=== PATIENT | female | born 1955 | race Caucasian/White ===

== ENCOUNTER 2018-09-24 17:35 | Emergency (ER) | payer OTHER ==
[~2018-09-24] VITALS: Ht 162.6 cm; Wt 98.9 kg
[~2018-09-24 17:35] MED LIST: AZITHROMYCIN 2250 MG PO; MEDROLDOSEPACK PO; PROAIR HFA8.5 GM IH; TUSSIONEX PENN473 ML PO
[2018-09-24 18:15] VITALS: BP 151/68
== END 2018-09-24 18:18 | disposition home or self-care (01) ==
LOC: ER 17:35
DX: S00.35XA Superficial foreign body of nose, initial encounter (principal); E11.9 Type 2 diabetes mellitus without complications; X58.XXXA Exposure to other specified factors, initial encounter; Y93.89 Activity, other specified; Y92.89 Other specified places as the place of occurrence of the external cause; Y99.8 Other external cause status

== ENCOUNTER 2018-11-02 14:58 | Inpatient (IN) | payer OTHER ==
[~2018-11-02] VITALS: Ht 157.5 cm; Wt 100.2 kg
--- NOTE | ~2018-11-02 | HC ---
[facility] [place] [address] CONSULTATION Name: KRYSTAL BENITEZ Room #: 363-P [facility] IN M.R.#: [id number] Admission: 11/02/18 ������������������ Attend Phys: Jeff Michael MD Discharge: ������������������ Date of : 55 Report #: [id number] THIS REPORT FOR: //name// CC: Jeff Junior DATE OF SERVICE: 11/03/2018 REASON FOR CONSULTATION: Elevated creatinine and low urine output. REASON FOR PRESENTATION: "I am not able to pee." HISTORY OF PRESENT ILLNESS: This is a 62-year-old who is known to be diabetic and hypertensive. She is maintained on an angiotensin converting enzyme inhibitor and metformin. She reported to the Emergency Room with low urine output, nausea, vomiting for the last couple of days. She did mention that her blood pressure has been on the low side; however, she is not able to elaborate more. She was found to be in an acute kidney injury with an elevated creatinine. She was also found to be hypotensive. Last creatinine we have on the patient was back in 2013 and this was within normal. She is not aware of any previous kidney problems. She denies nonsteroidal anti-inflammatory medication usage. She is not aware of any personal or family history of cystic kidney disease, nephrolithiasis, connective tissue disorders. No known glomerulonephritis in the family. She is not aware of any history of proteinuria or hematuria. When the patient presented yesterday, her blood pressure was on the extreme low side. She was admitted for further evaluation. I am being consulted to manage her acute kidney injury. MEDICATIONS: 1. Oxycodone. 2. Alendronate. 3. Lasix. 4. Glipizide. 5. Sitagliptin. 6. Carvedilol. 7. Lisinopril. 8. Metformin. PAST MEDICAL HISTORY: 1. Diabetes mellitus. 2. Chronic back pain. 3. Hyperlipidemia. 4. Hypertension. 5. Right endarterectomy. 6. Carpal tunnel surgery. 7. Hysterectomy. [address] [address] CONSULTATION Name: KRYSTAL BENITEZ Room #: 363-[facility] IN ..#: [id number] Admission: 11/02/18 ������������������ Attend Phys: Jeff Michael MD Discharge: ������������������ Date of : 55 Report #: [id number] SOCIAL HISTORY: Continues to smoke 2 packs per day. No drug or alcohol abuse. ALLERGIES: None. FAMILY HISTORY: Diabetes mellitus. REVIEW OF SYSTEMS: GENERAL: Significant for weakness. CARDIOVASCULAR: No chest pain or palpitation. PULMONARY: No cough or hemoptysis. GASTROINTESTINAL: Significant for nausea and vomiting. GENITOURINARY: Significant for anuria. MUSCULOSKELETAL: Back pain. PHYSICAL EXAMINATION: GENERAL: The patient is somewhat lethargic this morning. VITAL SIGNS: Blood pressure is 91/53. HEAD AND NECK: No jugular venous distention. CHEST: Decreased air entry bilaterally with no crackles. CARDIOVASCULAR: No rub. ABDOMEN: Soft, nontender. LOWER EXTREMITIES: No edema. LABORATORY VALUES: White blood cell count is down from 17.4-14.2. Blood gas revealed a pH of 7.2, pCO2 of 56. She was on BiPAP. Carboxyhemoglobin was 7.8. Lactate was 1.34. BUN was 30, creatinine was 3.2. Sodium was 137, potassium is 3.6. She was hypoglycemic with a blood sugar of 67. Phosphorus was 7.2, magnesium was 1.6. ASSESSMENT, IMPRESSION AND PLAN: 1. Acute kidney injury in the face of hypotension while on metformin and lisinopril. Really unclear source to me other than the hypotension. Alarming findings include her hyperphosphatemia, hypercapnia, high carboxyhemoglobin, and hypoglycemia. 2. Potential ingestion is unlikely given her anion gap. 3. I will initiate the appropriate workup for acute kidney injury. She does have an element of urinary tract infection and this could be all pyelo-related acute kidney injury. 4. Continue with the IV fluids. 5. Discontinue metformin. 6. Discontinue lisinopril. 7. Avoid nephrotoxins. 8. Follow urine output. 9. Follow electrolytes. [address] [address] CONSULTATION Name: KRYSTAL BENITEZ Room #: 363-[facility] IN M.R.#: [id number] Admission: 11/02/18 ������������������ Attend Phys: Jeff Michael MD Discharge: ������������������ Date of : 55 Report #: [id number] 10. Investigate the source for her hypercapnia. 11. We will continue to follow along. ��������������������������������������������� ���������������������������������������� By: ��������������������������������������������� [id number] Filomena Hickey MD /nt
[2018-11-02 14:59] VITALS: BP 97/52
[2018-11-02 16:44] LABS: ABSOLUTE NEUTROPHILS 12.1 thou/uL (1.4-8.2); BASOPHILS 1.4 % (0.0-2.0); EOSINOPHILS 1.1 % (0.0-3.0); HEMATOCRIT 48.6 % (37.0-47.0); HEMOGLOBIN 15.9 gm/dL (12.0-15.0); LYMPHOCYTES 23.4 % (24.0-44.0); MCH 28.9 pg (26.0-34.0); MCHC 32.7 g/dL (28.0-37.0); MCV 88.4 fL (80.0-100.0); MONOCYTES 4.6 % (1.0-8.0); PLATELET COUNT 215 thou/uL (150-400); POLYS 69.5 % (36.0-66.0); RBC 5.49 mil/uL (4.20-5.00); RDW 14.5 % (10.5-14.5); WBC 17.4 thou/uL (4.0-11.0)
[2018-11-02 16:57] LABS: CALCIUM 9.1 mg/dL (8.5-10.1); CREATININE 3.3 mg/dL (0.6-1.0)
[2018-11-02 17:02] LABS: ALBUMIN 3.7 g/dL (3.4-5.0); TOTAL BILIRUBIN 0.5 mg/dL (<0.1-1.0); TOTAL PROTEIN 7.4 g/dL (6.4-8.2)
[2018-11-02] MEDS ORDERED: OXYCONTIN80 M1 PO (18:08)
[2018-11-02] MEDS ORDERED: NORCO 10-325 T1 EACH PO (18:08)
[2018-11-02] MEDS ORDERED: ALENDRONATE SOD70 MG PO (18:08)
[2018-11-02] MEDS ORDERED: LASIX 40 MG TAB40 M2 PO (18:08)
[2018-11-02] MEDS ORDERED: CYMBALTA30 MG PO (18:09)
[2018-11-02] MEDS ORDERED: GLIPIZIDE ER5 MG PO (18:09)
[2018-11-02] MEDS ORDERED: CARVEDILOL12.5 MG PO (18:10)
[2018-11-02] MEDS ORDERED: GLUCOPHAGE XR500 MG PO (18:10)
[2018-11-02] MEDS ORDERED: LISINOPRIL40 MG PO (18:10)
[2018-11-02] MEDS ORDERED: JANUVIA100 MG PO (18:10)
[2018-11-02] MEDS ORDERED: CRESTOR20 MG PO (18:11)
[2018-11-02] MEDS ORDERED: NITROGLYCERIN0.4 MG SUBLING (18:11)
[2018-11-02 19:47] VITALS: BP 110/54
[2018-11-02 20:24] LABS: URINE BLOOD 3+ (Negative); URINE CLARITY SL CLOUDY; URINE COLOR YELLOW; URINE GLUCOSE-RANDOM* NEGATIVE (Negative); URINE KETONES 1+ (Negative); URINE NITRITE-REFLEX NEGATIVE (Negative); URINE PROTEIN (DIPSTICK) 2+ (Negative); URINE SPECIFIC GRAVITY >= 1.030 (1.005-1.035)
[2018-11-02 20:25] LABS: ICTOTEST (BILI CONFIRMATORY) Negative (Negative); URINE BILIRUBIN NEGATIVE (Negative); URINE LEUKOCYTES-REFLEX 2+ (Negative)
[2018-11-02 20:36] LABS: CASTS None Seen /LPF (None Seen); CRYSTALS None Seen /LPF (None Seen)
[2018-11-02 20:40] LABS: SQUAMOUS >10 Many /LPF (0-3)
[2018-11-02 20:41] LABS: CALCIUM OXALATE 0-3 Few /LPF (None Seen)
[2018-11-02 20:42] LABS: BACTERIA-REFLEX 1-9 Few /HPF (None Seen); URINE RBC 3-10 Few /HPF (0-2)
[2018-11-02 20:49] VITALS: BP 82/46
[2018-11-02 21:09] VITALS: BP 103/52
[2018-11-02 23:33] VITALS: BP 104/61
[2018-11-03] VITALS (7 sets, daily range): BP systolic 79–114; BP diastolic 33–3371
[2018-11-03 01:55] LABS: BE(vivo) -5.2 mmol/L (-2 to +3); HCO3 23.2 mmol/L (22.0-26.0); PCO2 56.3 mmHg (35.0-45.0); sO2 65.4 % (92.0-98.0)
[2018-11-03 01:56] LABS: PO2 40.3 mmHg (80.0-100.0); pH 7.232 (7.360-7.450)
--- NOTE | 2018-11-03 04:22 | NUR ---
Arrived on the floor from ER around 2108. Reported she's a 2 PPD smoker since age 13 but refused nicotine when offered. Verbalized shortness of breath with exertion. Up ad caron in room with steady gait. IV ABT given , pt. afebrile. C/O being hungry stating she has not had anything to eat or drink much at home since she's vomiting. BG checked before MN and reads 67. Rechecked BG = 65. Apple juice given ,drank half then c/o being nauseous. REHAB TECH notified of low BG and nausea. Zofran given with some relief. No further nausea. BG rechecked and up to 88.Voided per bathroom x3 and had total of 75 ml.Scanned bladder < 100. Phillips placed per order for accurate I/O ,small amount of urine in tubing. ABG drawn , REHAB TECH aware of results and RT put her on BIPAP. SCD's on. Pt. has been sleeping since she has been on BIPAP. Will continue to monitor. SR per tele.
[2018-11-03 05:13] LABS: HEMATOCRIT 42.7 % (37.0-47.0); MCH 28.4 pg (26.0-34.0); MCHC 32.1 g/dL (28.0-37.0); MCV 88.6 fL (80.0-100.0); RBC 4.82 mil/uL (4.20-5.00); RDW 14.7 % (10.5-14.5); WBC 14.2 thou/uL (4.0-11.0)
[2018-11-03 05:14] LABS: HEMOGLOBIN 13.7 gm/dL (12.0-15.0)
[2018-11-03 05:25] LABS: CALCIUM 7.9 mg/dL (8.5-10.1); CREATININE 3.2 mg/dL (0.6-1.0); MAGNESIUM 1.6 mg/dL (1.8-2.4); PHOSPHORUS 7.2 mg/dL (2.5-4.9); POTASSIUM 3.6 mmol/L (3.5-5.1)
[2018-11-03 06:49] LABS: BE(vivo) -6.1 mmol/L (-2 to +3); HCO3 22.4 mmol/L (22.0-26.0); PCO2 56.2 mmHg (35.0-45.0); PO2 70.5 mmHg (80.0-100.0); sO2 90.5 % (92.0-98.0)
[2018-11-03 06:51] LABS: pH 7.218 (7.360-7.450)
--- NOTE | 2018-11-03 08:33 | NUR ---
REVIEW PATIENT ABG WITH RT THAT PATIENT PATIENT REFUSED TO HAVE BIPAP. A/O X4. ON 4L/NC WITH CONTIUNOUS PULSE OX SAT 92%. WILL KEEP MONITOR.
--- NOTE | 2018-11-03 10:37 | NUR ---
INITIAL ASSESSMENT: Pt evaluated for d/c planning needs. Reviewed chart and spoke with nurse and pt. Pt is alert and oriented. Pt lives in house and states she was independent with ADL's prior to admission to the hospital. Pt has walker at home. Pt said she has not had home health in the past. Pt is hopeful to return home on d/c from hospital. Will remain available to assist as needed.
[2018-11-03] MEDS ORDERED: VENTOLIN HFA 1818 GM INH (12:20)
[2018-11-03 13:38] LABS: URINE CREATININE-RANDOM* 261.6 mg/dL; URINE PROTEIN-RANDOM* 176.6 mg/dL (<11.9)
--- NOTE | 2018-11-03 20:58 | NUR ---
PT REFUSING A PIV PLACED, RN INFORMED
[2018-11-04 04:15] VITALS: BP 122/52
--- NOTE | 2018-11-04 04:41 | NUR ---
RESTING QUIETLY TONIGHT. SHE HAS NEEDED SOME ENCOUAGEMENT TO BE COOPERATIVE WITH CARES. SHE COPNTINUES TO REFUSE THE CPAP AT TIME OF REST. CONT. PULSE OX KEEPING O2 SATS GREATER THAN 90 %. CAREPLAN REVEIWED. COMPLAINED OF PAIN AT THE BEGINING OF THE SHIFT, I EXPLAINED THE CONCERN ABOUT TAKING HER USUAL MEDICATION AT THIS TIME. SHE RELUCLANTLY AGREED TO THE PLAN OF NO OXYCODONE. SHE REFUSED TO TAKE THE HYDROCODONE, SHE DOES NOT THINK THAT IT CONTROLS HER PAIN.
[2018-11-04 06:49] LABS: ALBUMIN 2.9 g/dL (3.4-5.0); CALCIUM 8.1 mg/dL (8.5-10.1); PHOSPHORUS 5.1 mg/dL (2.5-4.9); POTASSIUM 4.4 mmol/L (3.5-5.1)
[2018-11-04 06:50] LABS: CREATININE 2.2 mg/dL (0.6-1.0)
[2018-11-04 12:14] VITALS: BP 149/59
[2018-11-04 16:28] VITALS: BP 176/91
--- NOTE | 2018-11-04 18:32 | NUR ---
Assumed care of Pt at 0700. Pt alert and oriented x3 no acute distress. feeling better after resuming oxycottin. excellent urine output. vitals stable. blood sugars improving. sinus on telemetry. will cont to monitor.
[2018-11-04 19:26] VITALS: BP 195/87
[2018-11-05] VITALS (7 sets, daily range): BP systolic 148–196; BP diastolic 62–83
[2018-11-05 05:32] LABS: HEMATOCRIT 41.7 % (37.0-47.0); HEMOGLOBIN 13.5 gm/dL (12.0-15.0); MCH 28.4 pg (26.0-34.0); MCHC 32.5 g/dL (28.0-37.0); MCV 87.5 fL (80.0-100.0); RBC 4.76 mil/uL (4.20-5.00); RDW 14.3 % (10.5-14.5)
[2018-11-05 05:40] LABS: ALBUMIN 2.8 g/dL (3.4-5.0); CALCIUM 8.9 mg/dL (8.5-10.1); PHOSPHORUS 2.2 mg/dL (2.5-4.9); POTASSIUM 4.3 mmol/L (3.5-5.1)
[2018-11-05 05:42] LABS: CREATININE 0.6 mg/dL (0.6-1.0)
--- NOTE | 2018-11-05 06:27 | NUR ---
ASSUMED CARE OF PT AT 1900. A&Ox3, COOPERATIVE. VS STABLE. C/O PAIN, OXYCOTIN GIVEN, HELPED BACK PAIN BUT PT CONTINUED TO C/O JAQUEZ. DENIED RESP DISTRESS. UOP ADEQUATE DOCUMENTED. CREAT WNL THIS AM. CURRENTLY RESTING. PROGRESSING WELL TOWARDS POC GOALS.
--- NOTE | 2018-11-05 18:43 | NUR ---
ASSUMED CARE AT 0700. PT A&OX4. PT REMAINS ON CONTINOUS PULSE OX AND 3L NC. PT O2 SAT BETWEEN 90-92%. PT DOES NOT WEAR O2 AT HOME. PT C/O OF BACK PAIN AND WAS GIVEN PRN PAIN MEDICATION X1 WITH PARTIAL RELIEF. PT ALSO GETS SCHEDULED Q12 PAIN MEDICATION. PT GETS UP WITH STANDBY ASSIST IN ROOM AND IS STEADY ON FEET. PT CALLS OUT APPROPRIATELY. PLAN IS D/C HOME TOMORROW PER HOSPITALIST. B/P MEDS STARTED TODAY.
--- NOTE | 2018-11-06 04:12 | NUR ---
RESTING QUIETLY TONIGHT. SHE HAS BEEN RELAXED AND BREATHING ASILY PER PATIENT REPORT. NURSE RE- EDUCATED PT ABOUT THE TELEMONITOR TRANSMISSION TECHICAL DIFFICULTIES. CONTINUE TO WEAR HER CONTINUOUS PULSE OX. REFUSED TO WEAR CPAP. STRONG STEADY GAIT UP TO RESTROOM. SHE WHEN SHE NEEDS ASSIST. CAREPLAN REVIEWED.
[2018-11-06 05:20] VITALS: BP 166/75
[2018-11-06 07:20] VITALS: BP 188/83
[2018-11-06 11:33] VITALS: BP 186/98
--- NOTE | 2018-11-06 13:49 | NUR ---
PT LEFT AMA..SHE STATED SHE NEEDED TO TAKE CARE OF HER MOTHER AND WAS NOT GOING TO STAY IN HOSPITAL TO HAVE REST AND EXERCISE OXIMETRY..HER SATS WERE AROUND 84-88% ON RA...DR CRAWFORD WROTE HER A RX FOR ANTIBITICS AND STEROIDS..
== END 2018-11-06 13:35 | disposition left against medical advice (07) | DRG 682 ==
LOC: ER 14:58 → EROBS 18:41 → 3W 18:41
PROVIDERS: Hospitalist; Internal Medicine Nephrology; Nurse Practitioner Acute Care; Physician Assistant; ADMIT Hospitalist
DX: N17.9 Acute kidney failure, unspecified (principal); J96.02 Acute respiratory failure with hypercapnia; J96.01 Acute respiratory failure with hypoxia; J44.1 Chronic obstructive pulmonary disease with (acute) exacerbation; N39.0 Urinary tract infection, site not specified; E66.2 Morbid (severe) obesity with alveolar hypoventilation; Z68.41 Body mass index [BMI] 40.0-44.9, adult; I95.9 Hypotension, unspecified; I10 Essential (primary) hypertension; F17.210 Nicotine dependence, cigarettes, uncomplicated; R34 Anuria and oliguria; Z53.21 Procedure and treatment not carried out due to patient leaving prior to being seen by health care provider; E78.5 Hyperlipidemia, unspecified; E11.649 Type 2 diabetes mellitus with hypoglycemia without coma; G89.29 Other chronic pain; M54.9 Dorsalgia, unspecified; E83.39 Other disorders of phosphorus metabolism; Z79.84 Long term (current) use of oral hypoglycemic drugs; Z90.710 Acquired absence of both cervix and uterus; Z83.3 Family history of diabetes mellitus; Z91.19 Patient's noncompliance with other medical treatment and regimen
CPT/HCPCS: 10080

== ENCOUNTER 2018-11-06 15:14 | Emergency (ER) | payer OTHER ==
[~2018-11-06] VITALS: Ht 157.5 cm; Wt 99.8 kg
[~2018-11-06 15:14] MED LIST changes: +ALENDRONATE SOD70 MG PO; +CARVEDILOL12.5 MG PO; +CRESTOR20 MG PO; +CYMBALTA30 MG PO; +GLIPIZIDE ER5 MG PO; +GLUCOPHAGE XR500 MG PO; +JANUVIA100 MG PO; +LASIX 40 MG TAB40 M2 PO; +LISINOPRIL40 MG PO; +NITROGLYCERIN0.4 MG SUBLING; +NORCO 10-325 T1 EACH PO; +OXYCONTIN80 M1 PO; +VENTOLIN HFA 1818 GM INH
[2018-11-06 16:00] VITALS: BP 174/81
== END 2018-11-06 16:03 | disposition home or self-care (01) ==
LOC: ER 15:14
DX: J44.1 Chronic obstructive pulmonary disease with (acute) exacerbation (principal); F17.210 Nicotine dependence, cigarettes, uncomplicated; M54.9 Dorsalgia, unspecified; G89.29 Other chronic pain; M19.90 Unspecified osteoarthritis, unspecified site; E78.5 Hyperlipidemia, unspecified; I10 Essential (primary) hypertension; E11.9 Type 2 diabetes mellitus without complications; Z88.5 Allergy status to narcotic agent; Z90.710 Acquired absence of both cervix and uterus

== ENCOUNTER → 2020-01-30 | Outpatient (CLI) | payer OTHER | LOC: RAD 12:22 | PROVIDERS: ATTEND Internal Medicine | DX: R91.8 Other nonspecific abnormal finding of lung field (principal); R09.89 Other specified symptoms and signs involving the circulatory and respiratory systems ==

== ENCOUNTER → 2020-02-07 | Outpatient (CLI) | payer OTHER | LOC: CAT 13:46 | PROVIDERS: ATTEND Internal Medicine | DX: J98.4 Other disorders of lung (principal); I25.10 Atherosclerotic heart disease of native coronary artery without angina pectoris; Z90.49 Acquired absence of other specified parts of digestive tract ==

== ENCOUNTER → 2020-03-14 | Outpatient (CLI) | payer OTHER ==
--- NOTE | 2020-03-14 14:37 | 2DMMODE ---
[facility] [place] [address] [place] [address] 2 D/M-MODE ECHOCARDIOGRAM Name: KRYSTAL BENITEZ Room #: REG [facility]#: [id number] Admission: 03/14/20 Attend Phys: Jon Diehl MD Discharge: Date of : 55 Report #: [id number] THIS REPORT FOR: cc: Imelda Junior MD, Stephanie B. MD Lammoglia, Francisco J. MD ~ APPROVED REPORT Study performed: 03/14/2020 13:10:39 EXAM: Comprehensive 2D, Doppler, and color-flow Echocardiogram Patient Location: Out-Patient Room #: 2 Status: routine BSA: 1.94 HR: 68 bpm BP: 142/76 mmHg Rhythm: NSR Other Information Study Quality: Adequate Indications COPD Dyspnea Hypertension/HDD 2D Dimensions LVOT Diam: 20.51 (18-24mm) IVC: 20.00 mm Volumes Left Atrial Volume (Systole) Single Plane 4CH: 72.05 mL Single Plane 2CH: 86.80 mL LA ESV Index: 45.00 mL/m2 Aortic Valve AoV Peak Viraj.: 2.55 m/s AO Peak Gr.: 26.02 mmHg LVOT Max P.28 mmHg AO Mean Gr.: 15.45 mmHg LVOT Mean P.22 mmHg AO V2 Mean: 1.83 m/s LVOT Max V: 1.03 m/s AO V2 VTI: 58.21 cm LVOT Mean V: 0.69 m/s DA (VTI): 1.57 cm2 LVOT V1 VTI: 27.61 cm DA Vmax: 1.34 cm2 [facility] [address] [place] [address] 2 D/M-MODE ECHOCARDIOGRAM Name: KRYSTAL BENITEZ Room #: REG [facility]#: [id number] Admission: 03/14/20 Attend Phys: Jon Diehl, Discharge: Date of : 55 Report #: [id number] SV (LVOT): 91.15 mL Mitral Valve E/A Ratio: 1.1 MV Decel. Time: 290.91 ms MV E Max Viraj.: 1.18 m/s MV A Viraj.: 1.08 m/s MV PHT: 84.36 ms IVRT: 78.43 ms Pulmonary Valve PV Peak Viraj.: 1.03 m/s PV Peak Gr.: 4.27 mmHg Pulmonary Vein P Vein S: 0.65 m/s P Vein A: 0.28 m/s P Vein D: 0.36 m/s P Vein A Dur.: 124.6 msec P Vein S/D Ratio: 1.81 Tricuspid Valve TR Peak Viraj.: 3.63 m/s TR Peak Gr.: 52.60 mmHg PA Pressure: 63.00 mmHg Left Ventricle The left ventricle is normal size. Mild concentric left ventricular hypertrophy. Left ventricular systolic function is hyperdynamic. LVEF is 65-70%. Grade II - pseudonormal filling dynamics. Right Ventricle Right ventricle is at the upper limits of normal. The right ventricular systolic function is normal. Atria Left atrium is dilated. Right atrium is dilated. Aortic Valve The aortic valve is normal in structure. Aortic valve is calcified. No aortic regurgitation is present. Mild aortic stenosis. Mitral Valve The mitral valve is normal in structure. There is mitral annular calcification. Mild mitral regurgitation. No evidence of mitral valve stenosis. Tricuspid Valve The tricuspid valve is normal in structure. There is mild tricuspid [facility] [address] [place] [address] 2 D/M-MODE ECHOCARDIOGRAM Name: KRYSTAL BENITEZ Room #: REG [facility]#: [id number] Admission: 03/14/20 Attend Phys: Jon Diehl, Discharge: Date of : 55 Report #: [id number] regurgitation. Estimated PAP 63 mmHg. There is moderate pulmonary hypertension. Pulmonic Valve The pulmonary valve is normal in structure. Trace pulmonic regurgitation. Great Vessels The aortic root is normal in size. IVC is dilated and collapses >50% with inspiration. Pericardium There is no pericardial effusion. <Conclusion> The left ventricle is normal size. LVEF is 65-70%. Left atrium is dilated. Right atrium is dilated. The aortic valve is normal in structure. Aortic valve is calcified. Mild aortic stenosis. The mitral valve is normal in structure. There is mitral annular calcification. Mild mitral regurgitation. The tricuspid valve is normal in structure. There is mild tricuspid regurgitation. Estimated PAP 63 mmHg. There is moderate pulmonary hypertension. The pulmonary valve is normal in structure. Trace pulmonic regurgitation. There is no pericardial effusion. <ELECTRONICALLY SIGNED> By: Yash Harley MD 03/14/20 [id number] Yash Harley MD /INF
== END ==
LOC: CV 10:13
PROVIDERS: ATTEND Internal Medicine
DX: I08.3 Combined rheumatic disorders of mitral, aortic and tricuspid valves (principal)

== ENCOUNTER → 2020-04-23 | Outpatient (CLI) | payer OTHER | LOC: LAB 13:22 | PROVIDERS: ATTEND Internal Medicine | DX: Z01.812 Encounter for preprocedural laboratory examination (principal); Z20.828 Contact with and (suspected) exposure to other viral communicable diseases ==